=== PATIENT | male | born 1940 | race Caucasian/White ===

== ENCOUNTER 2021-02-01 11:29 | Day surgery (SDC) | payer MEDICARE, MEDICAID ==
[~2021-02-01] VITALS: Ht 172.7 cm; Wt 58.6 kg
[2021-02-01] VITALS (11 sets, daily range): BP systolic 112–142; BP diastolic 62–85
[2021-02-01] MEDS ORDERED: fentaNYL/PF 50MCG/1 ML 2ML syringe IV ONE (12:15)
[2021-02-01] MEDS ORDERED: MIDAZolam 1mg/ml 10ml vial IV ONE (12:15)
[2021-02-01] MEDS ORDERED: normal saline 1000ml 1,000 ML IV SCH (12:15)
[2021-02-01] MEDS ORDERED: FURO40TA4 PO (12:27)
[2021-02-01] MEDS ORDERED: POTA20TA10 PO (12:27)
[2021-02-01] MEDS ORDERED: CARSR60C PO (12:27)
[2021-02-01] MEDS ORDERED: MULT-227 PO (12:27)
[2021-02-01] MEDS ORDERED: APIX5TAB3 PO (12:27)
[2021-02-01] MEDS ORDERED: LOSA50TA64 PO (12:27)
[2021-02-01] MEDS ORDERED: pneumococcal 23-VAL P-sac vacc 25 mcg/0.5ml vial IMVAC ONE (15:05)
[2021-02-01] MEDS ORDERED: FLU VACC QS2020-21(6MOS UP)/PF 60 MCG/0.5 ML SYRINGE IMVAC ONE (15:10)
== END 2021-02-01 13:05 | disposition home or self-care (01) ==
LOC: SSTAY O 11:29 → EDSTATUS 14:00
PROVIDERS: ATTEND Internal Medicine Interventional Cardiology
DX: I08.0 Rheumatic disorders of both mitral and aortic valves (principal); I48.91 Unspecified atrial fibrillation; I10 Essential (primary) hypertension; I27.20 Pulmonary hypertension, unspecified; Z86.718 Personal history of other venous thrombosis and embolism; Z79.01 Long term (current) use of anticoagulants; Z79.899 Other long term (current) drug therapy; Z88.8 Allergy status to other drugs, medicaments and biological substances
CPT/HCPCS: 36415; 87040; 93312; 93325; 94760; 94799; J2250; J3010; J7030

== ENCOUNTER 2021-04-05 05:10 | Day surgery (SDC) | payer MEDICARE, MEDICAID ==
[2021-04-05] VITALS (13 sets, daily range): BP systolic 110–131; BP diastolic 62–77
[~2021-04-05] VITALS: Ht 167.6 cm; Wt 58.0 kg
[~2021-04-05 05:10] MED LIST: APIX5TAB3 PO; CARSR60C PO; FURO40TA4 PO; LOSA50TA64 PO; MULT-227 PO; POTA20TA10 PO
[2021-04-05] MEDS ORDERED: normal saline 1,000 ML IV SCH ×2 (05:35→07:18)
[2021-04-05] MEDS ORDERED: diphenhydrAMINE 25mg capsule PO PRN (05:35)
[2021-04-05] MEDS ORDERED: LORazepam 0.5 MG tablet PO PRN (05:35)
[2021-04-05] MEDS ORDERED: FURO20TA4 PO (05:36)
[2021-04-05] MEDS ORDERED: POTA10TA10 PO (05:36)
[2021-04-05] MEDS ORDERED: DILT180C49 PO (05:36)
[2021-04-05] MEDS ORDERED: fentaNYL/PF 50MCG/1 ML 2ML syringe ONE (05:54)
[2021-04-05] MEDS ORDERED: verapamil 2.5 mg/ml inj IV ONE (05:54)
[2021-04-05] MEDS ORDERED: LIDOcaine 1% (10mg/ml)w/preservative injection 20ml MDV ONE (05:54)
[2021-04-05] MEDS ORDERED: iohexol 350MG/ML 100ml bottle IV ONE (05:54)
[2021-04-05] MEDS ORDERED: heparin 1,000unit/ml 10ml vial 10 ML ONE (05:54)
[2021-04-05] MEDS ORDERED: midazolam 1 mg/ML 2ml injection ONE (05:54)
[2021-04-05] MEDS ORDERED: nitroGLYCERIN-Tridil 50MG/D5W 250 ML IV ONE (05:55)
[2021-04-05] MEDS ORDERED: nitroGLYCERIN 0.4mg SUBLingual tab SL PRN (07:20)
[2021-04-05] MEDS ORDERED: HYDROcodone/acetaminophen 5mg/325mg tablet PO PRN (07:20)
[2021-04-05] MEDS ORDERED: HYDROcodone/acetaminophen 10/325mg tab PO PRN (07:20)
[2021-04-05] MEDS ORDERED: ondansetron/PF 4mg/2ml inj IV PRN (07:20)
[2021-04-05] MEDS ORDERED: proCHLORperazine 10 MG/2 ml inj IV PRN (07:20)
[2021-04-05] MEDS ORDERED: OXAZEpam 15mg capsule PO PRN (07:20)
== END 2021-04-05 15:00 | disposition home or self-care (01) ==
LOC: SSTAY O 05:10
PROVIDERS: ATTEND Internal Medicine Interventional Cardiology
DX: I34.0 Nonrheumatic mitral (valve) insufficiency (principal); I25.10 Atherosclerotic heart disease of native coronary artery without angina pectoris; I10 Essential (primary) hypertension; I48.91 Unspecified atrial fibrillation; I27.20 Pulmonary hypertension, unspecified; I48.0 Paroxysmal atrial fibrillation; Z86.718 Personal history of other venous thrombosis and embolism; Z87.891 Personal history of nicotine dependence; Z79.899 Other long term (current) drug therapy; Z79.01 Long term (current) use of anticoagulants; Z88.8 Allergy status to other drugs, medicaments and biological substances
CPT/HCPCS: 93005; 93454; 99152; C1769; C1894; J1644; J2001; J2250; J3010; J7030; Q0163; Q9967; 99153; A4620; A5120; J3490